=== PATIENT | male | born 1985 | race Caucasian/White ===

== ENCOUNTER 2021-09-05 10:58 | Emergency (ER) | payer OTHER ==
[~2021-09-05] VITALS: Ht 167.6 cm; Wt 77.1 kg
[~2021-09-05 10:58] MED LIST: CEPH500 PO; MUPIROCIN1 G1 TOP
[2021-09-05] MEDS ORDERED: AMOCLA875 PO (11:24)
[2021-09-05] MEDS ORDERED: Ultram50 MG PO (11:25)
== END 2021-09-05 11:26 | disposition home or self-care (01) ==
LOC: ER 10:58
DX: K04.7 Periapical abscess without sinus (principal); F17.200 Nicotine dependence, unspecified, uncomplicated
CPT/HCPCS: 99282

== ENCOUNTER → 2023-04-24 | Outpatient (CLI) | payer OTHER ==
[~2023-04-24] MED LIST changes: +AMOCLA875 PO; +Ultram50 MG PO
[2023-04-24 15:52] LABS: BASOPHILS ABSOLUTE AUTO 0.11 K/mm3 (0.00-0.23); BASOPHILS PERCENT AUTO 1 % (0-2); EOSINOPHILS ABSOLUTE AUTO 0.42 K/mm3 (0.00-0.68); EOSINOPHILS PERCENT AUTO 5 % (0-6); Hematocrit 43.9 % (37.0-53.0); Hemoglobin 14.6 g/dL (13.5-17.5); IMMATURE GRAN ABSOLUTE AUTO 0.03 K/mm3 (0.00-0.10); IMMATURE GRAN PERCENT AUTO 0 % (0-1); LYMPHOCYTES ABSOLUTE AUTO 2.12 K/mm3 (0.84-5.20); LYMPHOCYTES PERCENT AUTO 25 % (21-46); MONOCYTES ABSOLUTE AUTO 0.64 K/mm3 (0.16-1.47); MONOCYTES PERCENT AUTO 8 % (4-13); Mean Corpuscular HGB 31.1 pg (26.0-34.0); Mean Corpuscular HGB Conc 33.3 g/dL (31.5-36.5); Mean Corpuscular Volume 94 fL (80-100); Mean Platelet Volume 9.1 fL (9.1-12.4); NEUTROPHILS PERCENT AUTO 61 % (41-73); Platelet Count 315 K/mm3 (150-400); RDW Coefficient Variation 12.6 % (11.7-14.2); RDW Standard Deviation 43.2 fL (35.1-46.3); Red Blood Cell Count 4.69 M/mm3 (4.30-5.90); White Blood Cell Count 8.42 K/mm3 (4.00-11.30)
[2023-04-24 16:24] LABS: CHOL/HDL RATIO 2.8; Cholesterol 176 mg/dL (50-200); HDL Cholesterol 62 mg/dL (>39); LDL/HDL RATIO 1.6; Low Density Lipoprotein Chol 98 mg/dL (0-110); Triglycerides 79 mg/dL (30-140); Very Low Density Lipoprot Chol 15 mg/dL (6-28)
[2023-04-26 08:13] LABS: ALKALINE PHOSPHATASE, S 52 IU/L (44-121); ALT (SGPT) 17 IU/L (0-44); AST (SGOT) 26 IU/L (0-40); BILIRUBIN, TOTAL <0.2 mg/dL (0.0-1.2); BUN 13 mg/dL (6-20); BUN/CREATININE RATIO 19 (9-20); CALCIUM, SERUM 9.3 mg/dL (8.7-10.2); CARBON DIOXIDE, TOTAL 23 mmol/L (20-29); CHLORIDE, SERUM 102 mmol/L (96-106); GLOBULIN, TOTAL 2.3 g/dL (1.5-4.5); GLUCOSE, SERUM 100 mg/dL (70-99); POTASSIUM, SERUM 4.8 mmol/L (3.5-5.2); PROTEIN, TOTAL, SERUM 6.8 g/dL (6.0-8.5); SODIUM, SERUM 141 mmol/L (134-144)
[2023-04-26 13:09] LABS: HEMOGLOBIN A1C 5.3 % (4.8-5.6)
== END | disposition home or self-care (01) ==
LOC: LAB 14:56 → LAB SHORT 14:56
PROVIDERS: Family Medicine
DX: Z51.81 Encounter for therapeutic drug level monitoring (principal); Z79.899 Other long term (current) drug therapy
CPT/HCPCS: 80053; 80061; 82306; 83036; 84443; 85025